=== PATIENT | male | born 1965 | race Caucasian/White ===

== ENCOUNTER 2022-02-11 08:32 | Outpatient (REF) | payer OTHER, SELFPAY ==
[2022-02-11 11:20] LABS: MANUAL DIFF FLAG NO
[2022-02-11 11:35] LABS: Appearance Urine Clear; Color Urine Yellow; Glucose Urine UA Negative (Negative); Leukocyte Esterase Urine Negative (Negative); Nitrite Urine Negative (Negative); Specific Gravity - Urine 1.025 (1.005-1.025); Urine Blood Negative (Negative); Urine Ketones Trace mg/dL (Negative); Urine Protein Negative (Neg-Trace)
[2022-02-11 11:39] LABS: Bacteria Urine None Seen (None Seen); Hyaline Casts Urine 0-2 /LPF (0-2); RBC Urine 0-2 /HPF (0-2); Squamous Epithelial Cell Urine 0-2 /HPF (0-2); WBC Urine 0-5 /HPF (0-5)
[2022-02-11 11:45] LABS: Basophils Percent Auto 0.4 % (0-2); Eosinophils Absolute Auto 0.2 X10*3/uL (0.0-0.4); Eosinophils Percent Auto 4.6 % (0-4); Hematocrit 46.1 % (42.0-52.0); Hemoglobin 15.8 g/dl (14.0-18.0); Imm Gran Abs Auto 0.02 X10*3/uL (0.00-0.03); Imm Gran Pct Auto 0.4 % (0.0-0.4); Lymphocytes Absolute Auto 1.6 X10*3/uL (1.2-4.9); Mean Corpuscular HGB Conc 34.3 g/dl (31.0-36.0); Mean Corpuscular Hemoglobin 30.1 pg (27.0-33.0); Mean Corpuscular Volume 87.8 fL (80.0-98.0); Mean Platelet Volume 9.8 fL (9.4-12.4); Monocytes Absolute Auto 0.6 X10*3/uL (0.1-1.2); Monocytes Percent Auto 11.4 % (2-11); Neutrophils Absolute Auto 2.4 x10*3/uL (2.0-8.3); Neutrophils Percent Auto 49.2 % (45-73); Platelet Count 207 X10*3/uL (160-400); Red Blood Count 5.25 X10*6/uL (4.60-5.80); Red Cell Distribution Width 12.7 % (11.0-16.0); White Blood Count 4.8 X10*3/uL (4.8-10.8)
[2022-02-11 12:05] LABS: Alanine Aminotransferase 27 U/L (0-40); Albumin Level 4.4 g/dL (3.5-5.0); Alkaline Phosphatase 67 U/L (39-117); Anion Gap 16 (12-20); Aspartate Amino Transferase 20 U/L (5-37); Bilirubin Total 0.9 mg/dL (0.0-1.0); Blood Urea Nitrogen 21 mg/dL (9-16); Calcium 8.8 mg/dL (8.4-10.2); Carbon Dioxide 23 mmol/L (22-29); Chloride 105 mmol/L (96-108); Cholesterol 167 mg/dL; Estimated Glomerular Filt Rate > 60; Glucose Fasting 97 mg/dL (60-99); HDL Cholesterol 49 mg/dL; LDL Cholesterol Calculated 108 mg/dl; Potassium 4.5 mmol/L (3.3-5.1); Sodium 139 mmol/L (135-145); Total Protein 6.9 g/dL (6.5-8.0); Triglycerides 53 mg/dL
== END 2022-02-11 08:33 | disposition home or self-care (01) ==
LOC: HO.HMGCLDS 08:32
PROVIDERS: PCP Internal Medicine; Visit Provider Internal Medicine
DX: Z00.00 Encounter for general adult medical examination without abnormal findings (principal); Z12.5 Encounter for screening for malignant neoplasm of prostate
CPT/HCPCS: 36415; 80053; 80061; 81001; 84153; 85025

== ENCOUNTER 2023-02-13 07:33 | Outpatient (AMB) | payer OTHER, SELFPAY ==
--- NOTE | 2023-02-13 07:44 | MHC.PC.OV ---
Vital Signs 02/13/23 07:45 Height 5 ft 11 in Weight 234 lb BMI 32.6 BP 112/72 Blood Pressure Location Rt brachial Position Sitting Pulse 66 Pulse Source Pulse Oximeter Pulse Oximetry (%) 98 Oxygen Delivery Method Room Air Intake Visit Reasons: PE Allergies No Known Allergies Allergy (Verified 02/13/23 07:45) Medication List - Last Reconciled 02/13/23 by Hyun Mackay MD No Known Home Meds Tobacco use date assessed: 02/13/23 Dental Screening Dental Screen Date: 02/13/23 Did you have a dental visit in the last 12 months?: Yes Did you have a dental problem in the last 6 months where you did not have access to dental care?: No Was dental information given to patient?: Patient has dentist HPI PE HPI Details Patient presents for physical. He reports sweating more than usual with physical activity and some dyspnea on exertion when walking up the stairs. Patient denies palpitations or chest pain. 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 [facility] Surgical History History of hernia surgery Family History Father Diabetes Mother Hypertension Social History Household Members Other:: , 2 adult children, construction business Housing: House Patient Tobacco Use Status: Never used Tobacco e-Cigarette/Vaping Use: Never Used Current occupational status: employed Cognitive needs: No Hearing needs: No Vision needs: Yes Questionnaire Thrive Questionnaire Date Thrive assessed: 02/10/22 AUDIT C Alcohol Use Questionnaire (AUDIT-C) 1. How often do you have a drink containing alcohol?: Monthly or less 2. How many drinks containing alcohol do you have on a typical day when you are drinking?: 1 or 2 3. How often do you have six or more drinks on one occasion?: Never Total Score: 1 Score Reviewed/Action Taken: No NING-7 AMB Questionnaire NING-7 Date NING - 7 assessed: 02/10/22 Source: Developed by Drs. Rogerio Cobb, Lyn Weaver, Primo Adrian and colleagues, with an educational elba from [employer]. Review of Systems Const All systems reviewed & are unremarkable except as noted in HPI and below Reports no additional complaints Eyes Reports no additional complaints ENT Reports no additional complaints Card Reports no additional complaints Resp Reports no additional complaints GI Reports no additional complaints Reports no additional complaints Musc Reports no additional complaints Physical exam (Primary Care) Vital Signs: Last Vital Signs Pulse 66 02/13/23 07:45 BP 112/72 02/13/23 07:45 Pulse Ox 98 02/13/23 07:45 Oxygen Delivery Method Room Air 02/13/23 07:45 BMI result Body Mass Index 32.6 Tobacco/Smoking Status: Tobacco use Status Tobacco use date assessed 02/13/23 02/13/23 07:47 Patient Tobacco Use Status Never used Tobacco 02/13/23 07:47 e-Cigarette/Vaping Use Never Used 02/13/23 07:47 Thrive Assessment: Date of Thrive Assessment Date Thrive assessed 02/10/22 02/13/23 07:47 Const General: no acute distress HENMT Head: Yes normal to inspection General nose exam: Normal external nose present Face and sinus: Yes normal facial exam Mouth: Normal oral and palatal mucosa present Throat: Yes posterior oropharynx normal Neck Neck: Yes no lymphadenopathy and Yes supple Resp Effort & Inspection: normal respiratory effort Auscultation: clear to auscultation bilaterally Cardio Rhythm: regular rhythm Heart sounds: S1 normal heart sound present and S2 normal heart sound present GI Inspection: Yes normal to inspection Palpation (GI): Soft to palpation Percussion: Yes normal to percussion Auscultation: normal bowel sounds Assessment and Plan Assessment & Plan (1) Annual physical exam: Code(s): Z00.00 - Encounter for general adult medical examination without abnormal findings Plan: Well-balanced diet and regular physical activity discussed with the patient. He will have a fasting blood work today. EKG showed normal sinus rhythm, first-degree AV block no ST-T changes. Patient follow-up in 2 months if he has persistent increased sweating dyspnea on exertion despite regular cardiovascular exercise stress test will be scheduled Orders: Orders Complete Blood Count Auto Diff Today Z00.00 - Encounter for general adult medical examination without abnormal findings UA w Microscopic Today Z00.00 - Encounter for general adult medical examination without abnormal findings Comprehensive [place]. Panel Fast Today Z00.00 - Encounter for general adult medical examination without abnormal findings Lipid Panel Today Z00.00 - Encounter for general adult medical examination without abnormal findings PSA,Total (Free>4and<10) Today Z00.00 - Encounter for general adult medical examination without abnormal findings Coding Level of Care Code Est Pt Prev Care 40-64y(61898) Diagnoses Annual physical exam Z00.00
[2023-02-13 07:45] VITALS: BP 112/72; PULSE 66; O2SAT 98; BMI 32.6
== END 2023-02-13 10:22 | disposition home or self-care (01) ==
PROVIDERS: Visit Provider Internal Medicine
DX: Z00.00 Encounter for general adult medical examination without abnormal findings (principal)
CPT/HCPCS: 99396

== ENCOUNTER 2023-02-13 08:42 | Outpatient (REF) | payer OTHER, SELFPAY ==
[2023-02-13 11:40] LABS: Appearance Urine Clear; Color Urine Yellow; Glucose Urine UA Negative (Negative); Leukocyte Esterase Urine Negative (Negative); Nitrite Urine Negative (Negative); Specific Gravity - Urine 1.025 (1.005-1.025); Urine Blood Negative (Negative); Urine Ketones Negative (Negative); Urine Protein Negative (Neg-Trace)
[2023-02-13 11:42] LABS: MANUAL DIFF FLAG NO
[2023-02-13 11:44] LABS: Bacteria Urine None Seen (None Seen); Hyaline Casts Urine 0-2 /LPF (0-2); RBC Urine 0-2 /HPF (0-2); Squamous Epithelial Cell Urine 0-2 /HPF (0-2); WBC Urine 0-5 /HPF (0-5)
[2023-02-13 12:23] LABS: Basophils Percent Auto 0.6 % (0-2); Eosinophils Absolute Auto 0.2 X10*3/uL (0.0-0.4); Eosinophils Percent Auto 3.4 % (0-4); Hematocrit 49.2 % (42.0-52.0); Hemoglobin 16.6 g/dl (14.0-18.0); Imm Gran Abs Auto 0.04 X10*3/uL (0.00-0.03); Imm Gran Pct Auto 0.7 % (0.0-0.4); Lymphocytes Absolute Auto 1.7 X10*3/uL (1.2-4.9); Lymphocytes Percent Auto 31.3 % (20-40); Mean Corpuscular HGB Conc 33.7 g/dl (31.0-36.0); Mean Corpuscular Volume 88.8 fL (80.0-98.0); Mean Platelet Volume 10.1 fL (9.4-12.4); Monocytes Absolute Auto 0.5 X10*3/uL (0.1-1.2); Monocytes Percent Auto 9.4 % (2-11); Neutrophils Absolute Auto 2.9 x10*3/uL (2.0-8.3); Neutrophils Percent Auto 54.6 % (45-73); Platelet Count 210 X10*3/uL (160-400); Red Blood Count 5.54 X10*6/uL (4.60-5.80); Red Cell Distribution Width 12.8 % (11.0-16.0); White Blood Count 5.3 X10*3/uL (4.8-10.8)
[2023-02-13 12:28] LABS: Alanine Aminotransferase 36 U/L (0-40); Albumin Level 4.2 g/dL (3.5-5.0); Alkaline Phosphatase 66 U/L (39-117); Anion Gap 10 (12-20); Aspartate Amino Transferase 20 U/L (5-37); Bilirubin Total 0.5 mg/dL (0.0-1.0); Blood Urea Nitrogen 19 mg/dL (9-16); Calcium 9.4 mg/dL (8.4-10.2); Carbon Dioxide 25 mmol/L (22-29); Chloride 110 mmol/L (96-108); Cholesterol 178 mg/dL (<200); Estimated Glomerular Filt Rate > 60; Glucose Fasting 99 mg/dL (60-99); HDL Cholesterol 49 mg/dL (>40); LDL Cholesterol Calculated 114 mg/dL (<100); PSA,Total (Free>4and<10) 1.07 ng/mL (0.00-4.00); Potassium 4.4 mmol/L (3.3-5.1); Sodium 141 mmol/L (135-145); Total Protein 7.1 g/dL (6.5-8.0); Triglycerides 78 mg/dL (<150)
== END 2023-02-13 08:43 | disposition home or self-care (01) ==
LOC: HO.HMGCLDS 08:42
PROVIDERS: PCP Internal Medicine; Visit Provider Internal Medicine
DX: Z00.00 Encounter for general adult medical examination without abnormal findings (principal); R06.02 Shortness of breath; Z12.5 Encounter for screening for malignant neoplasm of prostate
CPT/HCPCS: 36415; 80053; 80061; 81001; 84153; 85025

== ENCOUNTER 2024-03-05 08:15 | Outpatient (AMB) | payer OTHER, SELFPAY ==
[2024-03-05 08:21] VITALS: BP 114/82; PULSE 64; O2SAT 97; BMI 32.4
--- NOTE | 2024-03-05 08:21 | A.OFFPC_ITS ---
Vital Signs 03/05/24 08:21 Height 5 ft 11 in Weight 232 lb BMI 32.4 BP 114/82 Blood Pressure Location Lt brachial Position Sitting Pulse 64 Pulse Source Pulse Oximeter Pulse Oximetry (%) 97 Oxygen Delivery Method Room Air Intake Visit Reasons: Annual PE Intake Note: Pt is here today for PE. Allergies No Known Allergies Allergy (Verified 03/05/24 08:29) Medication List - Last Reconciled 03/05/24 by Hyun Mackay MD No Known Home Meds Tobacco use date assessed: 03/05/24 Dental Screening Dental Screen Date: 03/05/24 Did you have a dental visit in the last 12 months?: Yes Did you have a dental problem in the last 6 months where you did not have access to dental care?: No Was dental information given to patient?: Patient has dentist HPI Annual PE HPI Details Pt presents for PE. Patient would like to have testosterone level checked because he reports decreased energy feeling tired despite getting enough sleep. [facility] Surgical History History of hernia surgery Family History Father Diabetes Mother Hypertension Social History Household Members Other:: , 2 adult children, construction business Housing: House Patient Tobacco Use Status: Never used Tobacco e-Cigarette/Vaping Use: Never Used service: No Current occupational status: employed Cognitive needs: No Hearing needs: No Vision needs: Yes Questionnaire PHQ-9 Over the last 2 weeks, how often have you been bothered by any of the following problems? 1. Little interest or pleasure in doing things: not at all 2. Feeling down, depressed, or hopeless: not at all 3. Trouble falling or staying asleep, or sleeping too much: not at all 4. Feeling tired or having little energy: not at all 5. Poor appetite or overeating: not at all 6. Feeling bad about yourself - or that you are a failure or have let yourself or your family down: not at all 7. Trouble concentrating on things, such as reading the newspaper or watching television: not at all 8. Moving or speaking so slowly that other people could have noticed. Or the opposite - being so fidgety or restless that you have been moving around a lot more than usual: not at all 9. Thoughts that you would be better off or of hurting yourself in some way: not at all Total score: 0 Depression Screening Interpretation: Negative Depression Screening Done: Yes 03033 - PHQ-9 Billing: Yes Source: Developed by Drs. Rogerio Cobb, Lyn Weaver, Primo Adrian and colleagues, with an educational elba from [employer]. Thrive Questionnaire Date Thrive assessed: 03/05/24 I am a: Patient What is your living situation today?: I have a steady place to live Within the past 12 months, did the food you bought not last and you didn't have the money to get more?: Never true Within the past 12 months, did you worry whether your food would run out before you got money to buy more?: Never true Do you have trouble paying for medicines?: No Do you have trouble getting transportation to medical appointments?: No Do you have trouble paying your heating and electricity bill?: No Do you have trouble taking care of your child, family member or friend?: No Do you have trouble with day-to-day activities such as bathing, preparing meals, shopping, managing finances, etc.?: No Are you currently unemployed and looking for a job?: No Are you interested in more education?: No Please select the resources that you would like help with: None Currently or been in a relationship where the following occur: No concerns reported THRIVE Score: 0 AUDIT C Alcohol Use Questionnaire (AUDIT-C) 1. How often do you have a drink containing alcohol?: 2-4 times a month 2. How many drinks containing alcohol do you have on a typical day when you are drinking?: 1 or 2 3. How often do you have six or more drinks on one occasion?: Never Total Score: 2 NING-7 AMB Questionnaire NING-7 Date NING - 7 assessed: 03/05/24 Feeling nervous, anxious, or on edge: 0 = Not at all Not being able to stop or control worryin = Not at all Worrying too much about different things: 0 = Not at all Trouble relaxin = Not at all Being so restless that it is hard to sit still: 0 = Not at all Becoming easily annoyed or irritable: 0 = Not at all Feeling afraid as if something awful might happen: 0 = Not at all Total NING-7 score (0-4 normal; 5-9 mild; 10-14 moderate; 15-21 severe): 0 Source: Developed by Drs. Rogerio Cobb, Lyn Weaver, Primo Adrian and colleagues, with an educational elba from [employer]. NING-7 Assessment Billing NING-7 Assessment Tool: NING-7 Assessment 17374 Review of Systems Const All systems reviewed & are unremarkable except as noted in HPI and below Eyes Reports no additional complaints ENT Reports no additional complaints Card Reports no additional complaints Resp Reports no additional complaints GI Reports no additional complaints Reports no additional complaints Physical exam (Primary Care) Vital Signs: Last Vital Signs Pulse 64 03/05/24 08:21 BP 114/82 03/05/24 08:21 Pulse Ox 97 03/05/24 08:21 Oxygen Delivery Method Room Air 03/05/24 08:21 BMI result Body Mass Index 32.4 Tobacco/Smoking Status: Tobacco use Status Tobacco use date assessed 03/05/24 03/05/24 08:31 Patient Tobacco Use Status Never used Tobacco 03/05/24 08:22 e-Cigarette/Vaping Use Never Used 03/05/24 08:22 PHQ-9: PHQ-9 Score PHQ-9: Total score 0 03/05/24 08:31 Depression Screening Interpretation: Negative Thrive Assessment: Date of Thrive Assessment Date Thrive assessed 03/05/24 03/05/24 08:31 Currently or been in a relationship where the following occur: No concerns reported Const General: no acute distress HENMT Head: Yes normal to inspection Ears: hearing grossly normal bilaterally Face and sinus: Yes normal facial exam Mouth: Normal oral and palatal mucosa present Throat: Yes posterior oropharynx normal Eyes General: appearance normal, both eyes and all related structures Neck Neck: Yes no lymphadenopathy and Yes supple Resp Effort & Inspection: normal respiratory effort Auscultation: clear to auscultation bilaterally Cardio Rhythm: regular rhythm Heart sounds: S1 normal heart sound present and S2 normal heart sound present GI Inspection: Yes normal to inspection Palpation (GI): Soft to palpation Percussion: Yes normal to percussion Auscultation: normal bowel sounds Coding Level of Care Code Est Pt Prev Care 40-64y(37568) Diagnoses Annual physical exam Z00.00 Shoulder pain, left M25.512 Additional Codes NING-7 Assessment Billing - NING-7 Assessment Tool: NING-7 Assessment 84828 ([id number]) PHQ-9 - 42768 - PHQ-9 Billing: Yes ([id number]) Assessment & Plan Assessment & Plan (1) Annual physical exam: Code(s): Z00.00 - Encounter for general adult medical examination without abnormal findings Category: Medical Plan: Well-balanced diet regular physical activity discussed with the patient he is up-to-date with colonoscopy (2) Shoulder pain, left: Code(s): M25.512 - Pain in left shoulder Category: Medical Plan: For chronic left shoulder pain x-ray will be obtained patient declined physical therapy Orders: Orders Complete Blood Count Auto Diff Today Z. - Encounter for general adult medical examination without abnormal findings Lipid Panel Today Z.00 - Encounter for general adult medical examination without abnormal findings TSH reflex Free T4 Today Z. - Encounter for general adult medical examination without abnormal findings UA w Microscopic Today Z. - Encounter for general adult medical examination without abnormal findings PSA,Total (Free>4and<10) Today R33.9 - Retention of urine, unspecified Lipid Panel 1 Year Z. - Encounter for general adult medical examination without abnormal findings UA w Microscopic 1 Year Z. - Encounter for general adult medical examination without abnormal findings Comprehensive [place]. Panel Fast Today Z.00 - Encounter for general adult medical examination without abnormal findings Testosterone, Free/Total Today Z00.00 - Encounter for general adult medical examination without abnormal findings XR shoulder LT min 2V Today M25.512 - Pain in left shoulder Comprehensive [place]. Panel Fast 1 Year . - Encounter for general adult medical examination without abnormal findings Complete Blood Count Auto Diff 1 Year Z. - Encounter for general adult medical examination without abnormal findings PSA,Total (Free>4and<10) 1 Year Z. - Encounter for general adult medical examination without abnormal findings
== END 2024-03-05 08:52 | disposition home or self-care (01) ==
PROVIDERS: PCP Internal Medicine; Visit Provider Internal Medicine
DX: Z00.00 Encounter for general adult medical examination without abnormal findings (principal); M25.512 Pain in left shoulder

== ENCOUNTER 2024-03-05 08:15 | Outpatient (REF) | payer OTHER, SELFPAY ==
[2024-03-05 10:17] LABS: MANUAL DIFF FLAG NO
[2024-03-05 10:20] LABS: Appearance Urine Clear; Color Urine Yellow; Glucose Urine UA Negative (Negative); Leukocyte Esterase Urine Negative (Negative); Nitrite Urine Negative (Negative); Specific Gravity - Urine 1.025 (1.005-1.025); Urine Blood Negative (Negative); Urine Ketones Negative (Negative); Urine Protein Negative (Neg-Trace)
[2024-03-05 10:23] LABS: Bacteria Urine None Seen (None Seen); Hyaline Casts Urine 0-2 /LPF (0-2); RBC Urine 0-2 /HPF (0-2); Squamous Epithelial Cell Urine 0-2 /HPF (0-2); WBC Urine 0-5 /HPF (0-5)
[2024-03-05 10:29] LABS: Basophils Percent Auto 0.3 % (0-2); Eosinophils Absolute Auto 0.2 X10*3/uL (0.0-0.4); Eosinophils Percent Auto 4.3 % (0-4); Hematocrit 47.3 % (42.0-52.0); Hemoglobin 16.3 g/dl (14.0-18.0); Imm Gran Abs Auto 0.01 X10*3/uL (0.00-0.03); Imm Gran Pct Auto 0.3 % (0.0-0.4); Lymphocytes Absolute Auto 1.5 X10*3/uL (1.2-4.9); Lymphocytes Percent Auto 36.5 % (20-40); Mean Corpuscular HGB Conc 34.5 g/dl (31.0-36.0); Mean Corpuscular Hemoglobin 30.6 pg (27.0-33.0); Mean Corpuscular Volume 88.9 fL (80.0-98.0); Mean Platelet Volume 9.9 fL (9.4-12.4); Monocytes Absolute Auto 0.5 X10*3/uL (0.1-1.2); Monocytes Percent Auto 11.5 % (2-11); Neutrophils Absolute Auto 1.9 x10*3/uL (2.0-8.3); Neutrophils Percent Auto 47.1 % (45-73); Platelet Count 204 X10*3/uL (160-400); Red Blood Count 5.32 X10*6/uL (4.60-5.80); Red Cell Distribution Width 12.8 % (11.0-16.0)
[2024-03-05 10:58] LABS: PSA,Total (Free>4and<10) 1.27 ng/mL (0.00-4.00)
[2024-03-05 11:02] LABS: Alanine Aminotransferase 35 U/L (0-40); Albumin Level 4.2 g/dL (3.5-5.0); Alkaline Phosphatase 71 U/L (39-117); Anion Gap 12 (12-20); Aspartate Amino Transferase 28 U/L (5-37); Bilirubin Total 0.7 mg/dL (0.0-1.0); Blood Urea Nitrogen 19 mg/dL (9-16); Calcium 9.4 mg/dL (8.4-10.2); Carbon Dioxide 24 mmol/L (22-29); Chloride 107 mmol/L (96-108); Cholesterol 153 mg/dL (<200); Estimated Glomerular Filt Rate > 60; Glucose Fasting 98 mg/dL (60-99); HDL Cholesterol 47 mg/dL (>40); LDL Cholesterol Calculated 98 mg/dL (<100); Potassium 4.6 mmol/L (3.3-5.1); Sodium 138 mmol/L (135-145); Triglycerides 44 mg/dL (<150)
[2024-03-05 11:05] LABS: TSH reflex Free T4 1.66 uIU/mL (0.32-4.0)
[2024-03-10 15:38] LABS: Testosterone, Total 346 ng/dL (250-1100)
== END 2024-03-05 08:16 | disposition home or self-care (01) ==
LOC: HO.HMGCX 08:15
PROVIDERS: PCP Internal Medicine; Visit Provider Internal Medicine
DX: Z00.00 Encounter for general adult medical examination without abnormal findings (principal); Z13.6 Encounter for screening for cardiovascular disorders; Z12.5 Encounter for screening for malignant neoplasm of prostate; M25.512 Pain in left shoulder; R33.9 Retention of urine, unspecified
CPT/HCPCS: 36415; 73030; 80053; 80061; 81001; 84153; 84402; 84403; 84443; 85025; 96127

== ENCOUNTER 2025-03-11 08:16 | Outpatient (AMB) | payer OTHER, SELFPAY ==
[2025-03-11 08:19] VITALS: BP 108/70; PULSE 67; RESP 16; TEMP 36.7; O2SAT 95; BMI 32.8
--- NOTE | 2025-03-11 08:19 | MHC.PC.OV ---
Vital Signs 03/11/25 08:19 Height 5 ft 11 in Weight 235 lb BMI 32.8 BP 108/70 Blood Pressure Location Lt brachial Position Sitting Respiration 16 Pulse 67 Pulse Source Pulse Oximeter Temp 98.0 F Temp Source Oral Pulse Oximetry (%) 95 Oxygen Delivery Method Room Air Intake Visit Reasons: Annual PE Intake Note: Pt is here today for PE. Allergies No Known Allergies Allergy (Verified 03/11/25 08:32) Medication List - Last Reconciled 03/11/25 by Hyun Mackay MD No Known Home Meds Tobacco use date assessed: 03/11/25 Dental Screening Dental Screen Date: 03/05/24 HPI Annual PE HPI Details Patient presents for physical. He reports persistent left shoulder pain on and off worse when trying to reach overhead or use it. Patient has been getting massage therapy monthly and improved significant improvement in his symptoms. He denies any weakness in the left upper extremity. Patient complains of chronic right ear hearing loss and would like to be tested. [facility] Medical History (Updated 03/11/25 @ 09:12 by Hyun Mackay MD) Shoulder pain, left Degenerative cervical disc Annual physical exam Surgical History (Updated 03/11/25 @ 08:56 by Hyun Mackay MD) Hx of colonoscopy History of hernia surgery Family History Father Diabetes Mother Hypertension Social History Household Members Other:: , 2 adult children, construction business Housing: House Patient Tobacco Use Status: Never used Tobacco e-Cigarette/Vaping Use: Never Used service: No Current occupational status: employed Cognitive needs: No Hearing needs: No Vision needs: Yes Questionnaire PHQ-9 Over the last 2 weeks, how often have you been bothered by any of the following problems? 1. Little interest or pleasure in doing things: not at all 2. Feeling down, depressed, or hopeless: not at all 3. Trouble falling or staying asleep, or sleeping too much: not at all 4. Feeling tired or having little energy: not at all 5. Poor appetite or overeating: not at all 6. Feeling bad about yourself - or that you are a failure or have let yourself or your family down: not at all 7. Trouble concentrating on things, such as reading the newspaper or watching television: not at all 8. Moving or speaking so slowly that other people could have noticed. Or the opposite - being so fidgety or restless that you have been moving around a lot more than usual: not at all 9. Thoughts that you would be better off or of hurting yourself in some way: not at all Total score: 0 Depression Screening Interpretation: Negative Depression Screening Done: Yes 71618 - PHQ-9 Billing: Yes Source: Developed by Drs. Rogerio Cobb, Lyn Weaver, Primo Adrian and colleagues, with an educational elba from [employer]. Thrive Questionnaire Date Thrive assessed: 03/11/25 I am a: Patient What is your living situation today?: I have a steady place to live Within the past 12 months, did the food you bought not last and you didn't have the money to get more?: Never true Within the past 12 months, did you worry whether your food would run out before you got money to buy more?: Never true Do you have trouble paying for medicines?: No Do you have trouble getting transportation to medical appointments?: No Do you have trouble paying your heating and electricity bill?: No Do you have trouble taking care of your child, family member or friend?: No Do you have trouble with day-to-day activities such as bathing, preparing meals, shopping, managing finances, etc.?: No Are you currently unemployed and looking for a job?: No Are you interested in more education?: No Please select the resources that you would like help with: None Currently or been in a relationship where the following occur: No concerns reported THRIVE Score: 0 AUDIT C Alcohol Use Questionnaire (AUDIT-C) 1. How often do you have a drink containing alcohol?: Monthly or less 2. How many drinks containing alcohol do you have on a typical day when you are drinking?: 1 or 2 3. How often do you have six or more drinks on one occasion?: Never Total Score: 1 NING-7 AMB Questionnaire NING-7 Date NING - 7 assessed: 03/11/25 Feeling nervous, anxious, or on edge: 0 = Not at all Not being able to stop or control worryin = Not at all Worrying too much about different things: 0 = Not at all Trouble relaxin = Not at all Being so restless that it is hard to sit still: 0 = Not at all Becoming easily annoyed or irritable: 0 = Not at all Feeling afraid as if something awful might happen: 0 = Not at all Total NING-7 score (0-4 normal; 5-9 mild; 10-14 moderate; 15-21 severe): 0 Source: Developed by Drs. Rogerio Cobb, Lyn Weaver, Primo Adrian and colleagues, with an educational elba from [employer]. NING-7 Assessment Billing NING-7 Assessment Tool: NING-7 Assessment 57238 Review of Systems Const All systems reviewed & are unremarkable except as noted in HPI and below Eyes Reports no additional complaints ENT Reports no additional complaints Card Reports no additional complaints Resp Reports no additional complaints GI Reports no additional complaints Reports no additional complaints Musc Reports no additional complaints Physical exam (Primary Care) Vital Signs: Last Vital Signs Temp 98.0 F 03/11/25 08:19 Pulse 67 03/11/25 08:19 Resp 16 03/11/25 08:19 BP 108/70 03/11/25 08:19 Pulse Ox 95 03/11/25 08:19 Oxygen Delivery Method Room Air 03/11/25 08:19 BMI result Body Mass Index 32.8 Tobacco/Smoking Status: Tobacco use Status Tobacco use date assessed 03/11/25 03/11/25 08:35 Patient Tobacco Use Status Never used Tobacco 03/11/25 08:35 e-Cigarette/Vaping Use Never Used 03/11/25 08:19 PHQ-9: PHQ-9 Score PHQ-9: Total score 0 03/11/25 08:19 Depression Screening Interpretation: Negative Thrive Assessment: Date of Thrive Assessment Date Thrive assessed 03/06/25 03/11/25 08:19 Currently or been in a relationship where the following occur: No concerns reported Const General: no acute distress HENMT Head: Yes normal to inspection General nose exam: Normal external nose present Face and sinus: Yes normal facial exam Eyes General: appearance normal, both eyes and all related structures Neck Neck: Yes no lymphadenopathy and Yes supple Resp Effort & Inspection: normal respiratory effort Auscultation: clear to auscultation bilaterally Cardio Rhythm: regular rhythm Heart sounds: S1 normal heart sound present and S2 normal heart sound present GI Inspection: Yes normal to inspection Palpation (GI): Soft to palpation Percussion: Yes normal to percussion Auscultation: normal bowel sounds Extrem General: Yes no clubbing, cyanosis or edema Coding Level of Care Code Est Pt Prev Care 40-64y(29849) Diagnoses Annual physical exam Z00.00 Hearing loss H91.90 Shoulder pain, left M25.512 Additional Codes NING-7 Assessment Billing - NING-7 Assessment Tool: NING-7 Assessment 20898 ([id number]) PHQ-9 - 09426 - PHQ-9 Billing: Yes ([id number]) Assessment & Plan Assessment & Plan (1) Annual physical exam: Code(s): Z00.00 - Encounter for general adult medical examination without abnormal findings Category: Medical Plan: Well-balanced diet regular physical activity discussed with the patient. He will return for fasting blood work before next physical (2) Hearing loss: Code(s): H91.90 - Unspecified hearing loss, unspecified ear Category: Medical Plan: Referred to hearing center (3) Shoulder pain, left: Comment: XR shoulder mild OA, Code(s): M25.512 - Pain in left shoulder Category: Medical Plan: Range of motion and strengthening exercises discussed with the patient. He is interested in physical therapy in April. Orders: Orders Complete Blood Count Auto Diff 1 Year Z00.00 - Encounter for general adult medical examination without abnormal findings Comprehensive [place]. Panel Fast 1 Year Z00.00 - Encounter for general adult medical examination without abnormal findings Lipid Panel 1 Year Z00.00 - Encounter for general adult medical examination without abnormal findings PSA,Total (Free>4and<10) 1 Year Z00.00 - Encounter for general adult medical examination without abnormal findings UA w Microscopic 1 Year Z00.00 - Encounter for general adult medical examination without abnormal findings Referrals Speech and Hearing Referral H91.90 - Unspecified hearing loss, unspecified ear
== END 2025-03-11 09:17 | disposition home or self-care (01) ==
LOC: HO.HMCC 08:17
PROVIDERS: PCP Internal Medicine; Visit Provider Internal Medicine
DX: Z00.00 Encounter for general adult medical examination without abnormal findings (principal); H91.90 Unspecified hearing loss, unspecified ear; M25.512 Pain in left shoulder

== ENCOUNTER → 2025-03-11 08:16 | Outpatient (BNVA) | payer OTHER, SELFPAY | PROVIDERS: PCP Internal Medicine; Visit Provider Internal Medicine | DX: Z00.00 Encounter for general adult medical examination without abnormal findings (principal); M25.562 Pain in left knee; H91.91 Unspecified hearing loss, right ear | CPT/HCPCS: 96127; 99396 ==